=== PATIENT | female | born 1975 ===

== ENCOUNTER 2019-08-03 11:48 | Outpatient (CLI) | payer OTHER | END 2019-08-03 11:49 | disposition home or self-care (01) | LOC: MAMO-SONO 11:48 | PROVIDERS: ATTEND Specialist | DX: Z12.31 Encounter for screening mammogram for malignant neoplasm of breast (principal); N63.10 Unspecified lump in the right breast, unspecified quadrant; N63.20 Unspecified lump in the left breast, unspecified quadrant ==

== ENCOUNTER 2019-11-08 08:00 | Outpatient (CLI) | payer OTHER | END 2019-11-08 15:00 | disposition home or self-care (01) | LOC: PPH VACUNA 08:00 | DX: Z23 Encounter for immunization (principal) ==